=== PATIENT | female | born 1990 ===

== ENCOUNTER 2016-05-02 11:03 | Emergency (ER) | payer MEDICAID, OTHER ==
[2016-05-02 11:38] VITALS: BP 108/80; PULSE 88; RESP 14; TEMP 98.4; O2SAT 96
[2016-05-02] MEDS ORDERED: NS 1,000 ML IV ONE (11:44)
[2016-05-02] MEDS ORDERED: ONDANSETRON 4 MG/2 ML VIAL IVP ONE (11:44)
[2016-05-02 12:01] LABS: % IMMATURE GRANULYOCYTES 0.5 % (0.0-1.1); ABSOLUTE IMMATURE GRANULOCYTES 0.06 10^3/uL (0.00-0.10); ADD DIFF? NO; ADD MORPH? NO; ADD SCAN? NO; ATYPICAL LYMPHOCYTE FLAG 50 (0-99); FRAGMENT RBC FLAG 0 (0-99); HEMATOCRIT 40.1 % (38.0-47.0); HEMOGLOBIN 13.5 g/dL (12.6-16.3); LEFT SHIFT FLG 0 (0-99); LIPEMIA HEMOLYSIS FLAG 80 (0-99); MEAN CELL HEMOGLOBIN 30.4 pg (27.9-34.1); MEAN CELL HEMOGLOBIN CONCENTR. 33.7 g/dL (32.4-36.7); MEAN CELL VOLUME 90.3 fL (81.5-99.8); MEAN PLATELET VOLUME 8.2 fL (8.7-11.7); PLATELET CLUMPS FLAG 0 (0-99); PLATELET COUNT 409 10^3/uL (150-400); RED BLOOD CELL COUNT 4.44 10^6/uL (4.18-5.33); RED CELL DISTRIBUTION WIDTH 12.2 % (11.5-15.2)
--- NOTE | 2016-05-02 12:02 | UCPHY ---
H & P Patient Type: Established Chief Complaint Nursing Narrative: abdominal pain,nausea,diarrhea(black,tarry stools),productive cough for 2 weeks. Pt. just returned from a trip to [place]. Time Seen by Provider: 05/02/16 11:17 HPI/ROS: Chief complaint: Abdominal pain, nausea, diarrhea HPI: Patient presenting complaining of 2 weeks of nausea, occasional vomiting, diarrhea and occasional black bowel movements. Patient states that she was recently in the anatomic came back and thinks she might have a parasite. Has been having pain in her upper abdomen after she eats. Is also having episodes of loose stools which is giving her low crampy pain. No fevers or chills. Has had some nausea but no vomiting. Is describing occasional dark black bowel movements. No urinary symptoms. No vaginal bleeding or discharge. ROS: 10 point Review of Systems is negative except as noted in the HPI. Physical exam: Gen: Awake, Alert, No Distress HEENT: Ears: Bilateral TMs are normal, no erythema or bulging. External auditory canals are clear. Nose: no rhinorrhea Eyes: PERRLA, EOMI Mouth: Moist mucosa Neck: Supple, no JVD Chest: nontender, lungs clear to auscultation Heart: S1, S2 normal, no murmur Abd: Soft, non-tender, no guarding Back: no CVA tenderness, no midline tenderness Ext: no edema, non-tender Skin: no rash Neuro: CN II-XII intact, Sensation grossly intact, Strength 5/5 in bilateral upper and lower extremities - Personal History Current Tetanus Diphtheria and Acellular Pertussis (TDAP): Yes Tetanus Vaccine Date: 2014 - Medical/Surgical History Hx Asthma: No Hx Chronic Respiratory Disease: No Hx Diabetes: No Hx Cardiac Disease: No Hx Renal Disease: No Hx Cirrhosis: No Hx Alcoholism: No Hx HIV/AIDS: No Hx Splenectomy or Spleen Trauma: No Other PMH: ADHD, depression, anxiety,PID,Hepatitis B, 10 lb weight loss in 2 weeks - Family History Significant Family History: No pertinent family hx - Social History Smoking Status: Never smoked Constitutional: Initial Vital Signs Temperature (C) 36.9 C 05/02/16 11:32 Heart Rate 88 05/02/16 11:32 Respiratory Rate 14 05/02/16 11:32 Blood Pressure 108/80 05/02/16 11:32 O2 Sat (%) 96 05/02/16 11:32 O2 Delivery Mode Room Air Allergies/Adverse Reactions: shellfish derived Allergy (Verified 05/02/16 11:32) tree nut [Nuts] Allergy (Verified 05/02/16 11:32) nuts Allergy (Uncoded 08/27/14 18:30) Home Medications: Medication Instructions Recorded Adderall 10 MG (RX) 07/17/14 Ciprofloxacin [Cipro] 500 mg PO BID #14 tab 05/02/16 Metronidazole 250 mg PO TID #21 tablet 05/02/16 Medical Decision Making ED Course/Re-evaluation: Patient has leukocytosis. Abdominal exam is benign. Electrolytes and liver function tests are normal. Symptoms are consistent with traveler's diarrhea. Since is been going on his lungs of has a more suspicious of a possible protazoan infection. Patient has also been having some reports of dark stools and having some epigastric pain. Her H&H are normal here. Will start her on metronidazole. If she is able to get a stool sample will send the specimen to the lab. Otherwise refer her to primary care and follow up with Gastroenterology for further evaluation. - Data Points Laboratory Results: Laboratory Results 05/02/16 11:54 05/02/16 11:54 05/02/16 11:54 WBC 12.48 H 10^3/uL (3.80-9.50) RBC 4.44 10^6/uL (4.18-5.33) Hgb 13.5 g/dL (12.6-16.3) Hct 40.1 % (38.0-47.0) MCV 90.3 fL (81.5-99.8) MCH 30.4 pg (27.9-34.1) MCHC 33.7 g/dL (32.4-36.7) RDW 12.2 % (11.5-15.2) Plt Count 409 H 10^3/uL (150-400) MPV 8.2 L fL (8.7-11.7) Neut % (Auto) 78.1 H % (39.3-74.2) Lymph % (Auto) 12.8 L % (15.0-45.0) Wilkinson % (Auto) 5.9 % (4.5-13.0) Eos % (Auto) 2.5 % (0.6-7.6) Baso % (Auto) 0.2 L % (0.3-1.7) Nucleat RBC Rel Count 0.0 % (0.0-0.2) Absolute Neuts (auto) 9.75 H 10^3/uL (1.70-6.50) Absolute Lymphs (auto) 1.60 10^3/uL (1.00-3.00) Absolute Monos (auto) 0.74 10^3/uL (0.30-0.80) Absolute Eos (auto) 0.31 10^3/uL (0.03-0.40) Absolute Basos (auto) 0.02 10^3/uL (0.02-0.10) Absolute Nucleated RBC 0.00 10^3/uL (0-0.01) Immature Gran % 0.5 % (0.0-1.1) Immature Gran # 0.06 10^3/uL (0.00-0.10) Sodium 143 mEq/L (134-144) Potassium 3.9 mEq/L (3.5-5.2) Chloride 105 mEq/L (97-110) Carbon Dioxide 26 mEq/l (22-31) Anion Gap 12 mEq/L (8-16) BUN 10 mg/dL (7-23) Creatinine 0.7 mg/dL (0.6-1.0) Estimated GFR > 60 Glucose 97 mg/dL (70-100) Calcium 9.5 mg/dL (8.5-10.4) Total Bilirubin 0.8 mg/dL (0.1-1.4) Conjugated Bilirubin 0.4 mg/dL (0.0-0.5) Unconjugated Bilirubin 0.4 mg/dL (0.0-1.1) AST 21 IU/L (14-46) ALT 32 IU/L (9-52) Alkaline Phosphatase 79 IU/L (38-126) Total Protein 6.9 g/dL (6.3-8.2) Albumin 3.7 g/dL (3.5-5.0) Lipase 118.0 IU/L (23-300) Beta HCG, Qual NEGATIVE Medications Given: Discontinued Medications Sodium Chloride (Ns) 1,000 mls @ 0 mls/hr IV ONCE ONE PRN Reason: Wide Open Stop: 05/02/16 11:45 Last Admin: 05/02/16 11:55 Dose: 1,000 mls Ondansetron HCl (Zofran) 4 mg IVP EDNOW ONE Stop: 05/02/16 11:45 Last Admin: 05/02/16 12:06 Dose: 4 mg Departure - Departure Disposition: Home, Routine, Self-Care Clinical Impression: Travelers' diarrhea, Peptic ulcer disease Condition: Good Instructions: Traveler's Diarrhea (ED), Gastritis (ED), Diet for Stomach Ulcers and Gastritis (ED) Additional Instructions: Follow up with both primary care doctor and with Gastroenterology for further evaluation. If he continues to pass dark stools you will need to have and endoscopy done to look for the possibility of an ulcer. Go directly to the emergency department for increasing pain, lightheadedness, fainting, blood per rectum, fevers, chills, persistent diarrhea, or any other concerns. Referrals: NONE *PRIMARY CARE P,. [Primary Care Provider] - As per Instructions Scooter Herrera [Doctor of Osteopathy] - As per Instructions [facility] [Outside] - As per Instructions Bernabe Lacy MD [Medical Doctor] - As per Instructions Prescriptions: Ciprofloxacin [Cipro] 500 mg PO BID #14 tab Metronidazole 250 mg PO TID #21 tablet - PQRS PQRS Measurement: NA
[2016-05-02 12:18] LABS: ALANINE AMINOTRANSFERASE 32 IU/L (9-52); ALBUMIN 3.7 g/dL (3.5-5.0); ALKALINE PHOSPHATASE 79 IU/L (38-126); ANION GAP 12 mEq/L (8-16); ASPARTATE AMINOTRANSFERASE 21 IU/L (14-46); BILIRUBIN,TOTAL 0.8 mg/dL (0.1-1.4); BILIRUBIN-CONJUGATED 0.4 mg/dL (0.0-0.5); BILIRUBIN-UNCONJUGATED 0.4 mg/dL (0.0-1.1); CALCIUM 9.5 mg/dL (8.5-10.4); CARBON DIOXIDE 26 mEq/l (22-31); CHLORIDE 105 mEq/L (97-110); CREATININE 0.7 mg/dL (0.6-1.0); GLOMERULAR FILTRATION RATE > 60; GLUCOSE 97 mg/dL (70-100); POTASSIUM 3.9 mEq/L (3.5-5.2); SODIUM 143 mEq/L (134-144); TOTAL PROTEIN 6.9 g/dL (6.3-8.2)
[2016-05-02] MEDS ORDERED: HYOSCYAMINE SULFATE 0.125 MG TAB ONE (12:37)
[2016-05-02] MEDS ORDERED: HYOSCYAMINE SULFATE 0.125 MG TAB PO ONE (12:43)
== END 2016-05-02 13:07 | disposition home or self-care (01) ==
LOC: CED 11:03
DX: R19.7 Diarrhea, unspecified (principal); K27.9 Peptic ulcer, site unspecified, unspecified as acute or chronic, without hemorrhage or perforation; F41.8 Other specified anxiety disorders; F90.0 Attention-deficit hyperactivity disorder, predominantly inattentive type
CPT/HCPCS: 80048-PO; 80076-PO; 83690-PO; 84703-PO; 85025-PO; 96361-PO; 96374-PO; G0463-PO; J2405